=== PATIENT | male | born 2005 | race Caucasian/White ===

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

== ENCOUNTER 2023-07-01 19:24 | Emergency (ER) | payer OTHER, SELFPAY ==
[2023-07-01 19:23] VITALS: BP 142/75; PULSE 71; RESP 22; TEMP 37.1; O2SAT 100
--- NOTE | 2023-07-01 19:30 | ECG_ITS ---
Measurements Intervals [place] Rate: 77 P: 23 HI: 194 QRS: 55 QRSD: 96 T: 22 QT: 366 QTc: 415 Interpretive Statements SINUS RHYTHM INCOMPLETE RIGHT BUNDLE BRANCH BLOCK BASELINE ARTIFACT- III BORDERLINE ECG NO PREVIOUS ECG AVAILABLE FOR COMPARISON Electronically Signed On 07-01-2023 20:29:28 CDT by Choco Dewitt D.O.
[2023-07-01 19:34] VITALS: BP 150/77; PULSE 83; RESP 22; O2SAT 98
[2023-07-01 19:38] LABS: Glucose Point of Care 111 mg/dl (65-105)
[2023-07-01 19:58] LABS: Basophils Absolute Auto 0.1 K/mm3 (0.0-0.1); Basophils Percent Auto 0.5 % (0.2-1.2); Eosinophils Absolute Auto 0.3 K/mm3 (0-0.3); Eosinophils Percent Auto 1.6 % (0-4.4); Hematocrit 40.8 % (42.0-52.0); Hemoglobin 13.1 g/dL (14.0-18.0); Immature Granulocyte Absolute 0.07 K/mm3 (0.00-0.031); Immature Granulocyte Percent A 0.4 % (0-0.5); Lymphocytes Percent Auto 24.3 % (18.3-44.2); Mean Corpuscular HGB Conc 32.1 g/dl (32-36); Mean Corpuscular Hemoglobin 29.8 pg (26-34); Mean Corpuscular Volume 92.7 fl (80-100); Mean Platelet Volume 10.9 fl (7.4-10.4); Monocytes Absolute Auto 1.8 K/mm3 (0.1-0.6); Neutrophils Percent Auto 62.2 % (45.5-73.1); Platelet Count Result 367 k/mm3 (150-375); Red Cell Distribution Width 14.3 % (11.5-14.5); White Blood Count 16.1 K/mm3 (4.5-10.0)
[2023-07-01 20:01] VITALS: BP 143/55; PULSE 85; RESP 23; O2SAT 100
[2023-07-01 20:15] LABS: Alanine Aminotransferase 30 U/L (6-50); Albumin Level 4.3 g/dL (3.5-5.1); Alkaline Phosphatase 81 U/L (38-126); Anion Gap 8 mmol/L (8-16); Aspartate Amino Transferase 32 U/L (17-59); Bilirubin,Total 0.3 mg/dL (0.2-1.3); Blood Urea Nitrogen 20 mg/dL (9-20); Calcium 9.4 mg/dL (8.4-10.2); Carbon Dioxide 25 mmol/L (22-30); Chloride 105 mmol/L (98-107); Estimated CRCL calculation 204 ml/min; Estimated Glomerular Filt Rate > 60; Glucose 119 mg/dL (65-110); Potassium 4.1 mmol/L (3.4-5.0); Sodium 138 mmol/L (137-145)
[2023-07-01 20:31] VITALS: BP 150/81; PULSE 90; RESP 20; O2SAT 100
[2023-07-01] MEDS: SODIUM CHLORIDE 0.9% IV 1,000 ML 999 ML IV CONT (20:39)
--- NOTE | 2023-07-01 21:10 | ED.GENADULT ---
HPI - General Adult General Chief complaint: Syncope Stated complaint: syncopal with confusion and dizziness Time Seen by Provider: 07/01/23 20:19 History of Present Illness HPI narrative: The patient is a 18-year-old gentleman who presents emergency department with chief complaint of syncopal episode. Patient reports that he was at a class and was sitting the patient states he started to feel lightheaded and then had a brief episode of syncope. Patient afterwards: Lightheaded states that he may have been a little dazed afterwards but now has returned back to normal. The patient denies chest pain denies shortness of breath reports that he has had no vomiting no diarrhea reports that he does get infusions and has history of immunodeficiency. Related Data Home Medications Medication Instructions Recorded Confirmed immune glob,gamma(IgG) 15 %-18 % ml IM 05/20/19 range-glycine intramuscular solution Allergies Allergy/AdvReac Type Severity Reaction Status Date / Time No Known Allergies Allergy Verified 07/01/23 19:35 Review of Systems Review of Systems: A 10 system review of systems was completed on the patient and is negative except for what is stated in the HPI. Nursing and ancillary documentation was reviewed. [facility] Past Medical History Medical History Deficiency, immunity, common variable Followed @ [facility] Receives IVIG monthly by [facility], Due Friday05-22-2019 History of ITP Surgical History Surgical History History of splenectomy Hasn't had Amoxil for years. Social History Social History Gender identity (if verbalized by the patient): Male Exam Narrative: GENERAL: Well-appearing, well-nourished, and in no acute distress. HEAD: Normocephalic, atraumatic. EYES: PERRLA and EOMI. ENT: Nares clear, no rhinorrhea or epistaxis. Mucous membranes moist. NECK: Supple. CHEST: Clear to auscultation. No respiratory distress. HEART: Regular rate and rhythm. No murmur heard. Normal peripheral pulses. ABDOMEN: Soft, nontender, nondistended, normal active bowel sounds. EXTREMITIES: Normal range of motion. No edema. SKIN: Warm, dry, no rash. NEURO: No focal deficits. Alert and oriented x3. PSYCH: Normal mood and affect. Course Vital Signs Vital signs: Vital Signs Temperature 37.1 C 07/01/23 19:23 Pulse Rate 71 07/01/23 19:23 Respiratory Rate 22 H 07/01/23 19:23 Blood Pressure 142/75 H 07/01/23 19:23 Pulse Oximetry 100 07/01/23 19:23 Oxygen Delivery Room Air 07/01/23 19:23 Temperature 37.1 C 07/01/23 19:23 Pulse Rate 83 07/01/23 21:31 Respiratory Rate 17 07/01/23 21:31 Blood Pressure 131/69 07/01/23 21:31 Pulse Oximetry 98 07/01/23 21:31 Oxygen Delivery Room Air 07/01/23 19:23 Medical Decision Making [facility] Narrative Medical decision making narrative: Differential diagnosis includes vasovagal syncope, dehydration, electrolyte abnormality, dysrhythmia The patient has been observed on the monitor has had no episodes of dysrhythmia. EKG showed no acute ischemic changes and no dysrhythmia Electrolytes were obtained which did show no acute abnormality potassium was 4.1 creatinine 0.8 CK total is 370 urinalysis showed 1+ protein CBC showed white count of 16.1 hemoglobin 13.1. Patient received a L of normal saline boluses and is feeling much better at this time. The patient was observed on the monitor and has had no further symptoms the patient is able ambulate without difficulty showing no signs of focal neurological deficit. The patient was instructed return precautions and will be discharged home to follow-up with his primary care provider Vital Signs Vital Signs: Vital Signs Temperature 37.1 C 07/01/23 19:23 Pulse Rate 71 06/19
[2023-07-01 21:30] LABS: Appearance Urine Clear (Clear); Bacteria Urine None Seen /hpf; Bilirubin Urine Negative (Negative); Blood Urine Negative (Negative); Color Urine Yellow (Yellow); Glucose Urine UA Negative (Negative); Ketones Urine Negative (Negative); Leukocyte Esterase Ur Negative LEU/UL (Negative); Nitrate Urine Negative (Negative); Non Pathogenic Casts 0-2; Protein Urine 1+ mg/dL (Negative); RBC Urine 0-2 /hpf (0-2); Specific Grav Ur 1.022 (1.001-1.035); Squamous Epithelial Cell Urine None Seen /hpf (Few); Urobilinogen Urine 0.2 mg/dL (<2.0); WBC Urine 0-5 /hpf (0-3); pH Urine 5.5 (5.0-9.0)
[2023-07-01 21:31] VITALS: BP 131/69; PULSE 83; RESP 17; O2SAT 98
[2023-07-01 21:33] LABS: Creatine Kinase 370 U/L (55-170)
[2023-07-01 21:40] LABS: Add Urine Microscopic? YES
--- NOTE | 2023-07-01 22:31 | PC.NURSE ---
IV NS still infusing as pt had arm bent. This RN educated pt on keeping arm straight so fluids can be infused.
[2023-07-01 23:09] VITALS: BP 110/56; PULSE 83; RESP 16; O2SAT 99
== END 2023-07-01 23:12 | disposition home or self-care (01) ==
PROVIDERS: Emergency Provider Emergency Medicine; PCP Family Medicine
DX: R55 Syncope and collapse (principal); Z90.81 Acquired absence of spleen; I45.10 Unspecified right bundle-branch block
CPT/HCPCS: 36415; 80053; 82550; 82948; 85025; 93005; 96360; 96361; 99284; J7030